=== PATIENT | female | born 1975 | race Caucasian/White ===

== ENCOUNTER → 2021-08-15 15:41 | Outpatient (BNVA) | payer OTHER, SELFPAY | PROVIDERS: PCP Internal Medicine; Referring Provider Internal Medicine; Visit Provider Physician Assistant Surgical ==

== ENCOUNTER → 2021-08-22 08:07 | Outpatient (BNVA) | payer OTHER, SELFPAY | PROVIDERS: PCP Internal Medicine; Visit Provider Surgery ==

== ENCOUNTER 2021-08-24 08:44 | Outpatient (REF) | payer OTHER, SELFPAY ==
--- NOTE | ~2021-08-24 | XR_ITS ---
EXAMINATION: XR CHEST CLINICAL INFORMATION: Bariatric service evaluation, E66.01. COMPARISON: Chest radiographs 10/08/2017 TECHNIQUE: 2 views of the chest were obtained. FINDINGS: The lungs are clear. There is no airspace consolidation or effusion. The heart is normal in size. The hilar and mediastinal contours are normal. Bony structures show levocurvature lower thoracic spine. XR/XR chest 2V IMPRESSION: 1. Lungs clear. 2. Levocurvature lower thoracic spine.
--- NOTE | 2021-08-24 09:21 | ECG_ITS ---
Test Reason : 0besity Blood Pressure : / mmHG Vent. Rate : 082 BPM Atrial Rate : 082 BPM P-R Int : 150 ms QRS Dur : 084 ms QT Int : 360 ms P-R-T Axes : 054 025 061 degrees QTc Int : 420 ms Normal sinus rhythm Normal ECG When compared with ECG of 08-OCT-2017 11:17, No significant change was found Referred By: Low Moore Electronically Signed By:SAGAR CARBAJAL
[2021-08-24 09:22] LABS: MANUAL DIFF FLAG NO
[2021-08-24 10:03] LABS: Basophils Percent Auto 0.4 % (0-2); Eosinophils Absolute Auto 0.1 X10*3/uL (0.0-0.4); Eosinophils Percent Auto 1.9 % (0-4); Hematocrit 42.8 % (37.0-47.0); Hemoglobin 14.1 g/dl (12.0-16.0); Imm Gran Abs Auto 0.01 X10*3/uL (0.00-0.03); Imm Gran Pct Auto 0.2 % (0.0-0.4); Lymphocytes Absolute Auto 1.2 X10*3/uL (1.2-4.9); Lymphocytes Percent Auto 26.4 % (20-40); Mean Corpuscular HGB Conc 32.9 g/dl (31.0-35.0); Mean Corpuscular Hemoglobin 30.2 pg (27.0-33.0); Mean Corpuscular Volume 91.6 fL (80.0-98.0); Mean Platelet Volume 10.2 fL (9.4-12.3); Monocytes Absolute Auto 0.3 X10*3/uL (0.1-1.2); Monocytes Percent Auto 7.2 % (2-11); Neutrophils Percent Auto 63.9 % (45-73); Platelet Count 288 X10*3/uL (160-400); Red Blood Count 4.67 X10*6/uL (4.20-5.50); Red Cell Distribution Width 13.2 % (11.0-16.0); White Blood Count 4.7 X10*3/uL (4.8-10.8)
[2021-08-24 10:27] LABS: Alanine Aminotransferase 14 U/L (0-31); Albumin Level 4.3 g/dL (3.5-5.0); Alkaline Phosphatase 88 U/L (39-117); Anion Gap 13 (12-20); Aspartate Amino Transferase 19 U/L (5-31); Bilirubin Total 0.8 mg/dL (0.0-1.0); Blood Urea Nitrogen 15 mg/dL (9-16); C Reactive Protein 1.77 mg/dL (< or = 0.50); Calcium 10.1 mg/dL (8.4-10.2); Carbon Dioxide 28 mmol/L (22-29); Chloride 103 mmol/L (96-108); Cholesterol 161 mg/dL; Estimated Glomerular Filt Rate > 60; Glucose Random 89 mg/dL (60-115); HDL Cholesterol 71 mg/dL; Iron 60 mcg/dL (30-160); LDL Cholesterol Calculated 81 mg/dl; Percent Iron Saturation 16 % (15-50); Potassium 4.5 mmol/L (3.3-5.1); Sodium 139 mmol/L (135-145); Total Iron Binding Capacity 379 mcg/dL (228-428); Total Protein 8.1 g/dL (6.5-8.0); Triglycerides 45 mg/dL; Unsaturated Iron Binding 319 ug/dL
[2021-08-24 10:42] LABS: Estimated Average Glucose 97 mg/dL
[2021-08-24 10:49] LABS: Ferritin 44 ng/mL (10-250); TSH reflex Free T4 1.56 uIU/mL (0.32-4.0); Vitamin D 25-OH Total 11.9 ng/mL (>30)
[2021-08-24 11:16] LABS: Folate 14.4 ng/mL (> or = 4.0); Vitamin B12 312 pg/mL (200-900)
[2021-08-28 12:36] LABS: Calcium (PTHI) 9.8 mg/dL (8.6-10.2); PTHI 42 pg/mL (14-64)
[2021-08-28 23:26] LABS: Zinc 60 mcg/dL (60-130)
[2021-08-30 12:05] LABS: Vitamin B1 6 nmol/L (8-30)
[2021-08-31 17:45] LABS: Vitamin A 33 mcg/dL (38-98)
== END 2021-08-24 08:45 | disposition home or self-care (01) ==
LOC: HO.XRAY 08:44
PROVIDERS: PCP Internal Medicine; Visit Provider Surgery
DX: E66.01 Morbid (severe) obesity due to excess calories (principal)
CPT/HCPCS: 36415; 71046; 80053; 80061; 82306; 82607; 82728; 82746; 83036; 83540; 83970; 84425; 84443; 84590; 84630; 85025; 86140; 93005

== ENCOUNTER 2021-08-29 13:23 | Outpatient (REF) | payer OTHER, SELFPAY ==
[2021-08-30 12:01] LABS: H Pylori Breath Test Negative (Negative)
== END 2021-08-29 13:24 | disposition home or self-care (01) ==
LOC: HO.LNP 13:23
PROVIDERS: Surgery; PCP Internal Medicine; Referring Provider Internal Medicine; Visit Provider Physician Assistant Surgical
DX: E66.01 Morbid (severe) obesity due to excess calories (principal)
CPT/HCPCS: 83013

== ENCOUNTER → 2021-08-31 08:32 | Outpatient (BNVA) | payer OTHER, SELFPAY | PROVIDERS: PCP Internal Medicine; Referring Provider Internal Medicine; Visit Provider Dietitian, Registered | DX: E66.01 Morbid (severe) obesity due to excess calories (principal); Z68.41 Body mass index [BMI] 40.0-44.9, adult | CPT/HCPCS: 97802 ==

== ENCOUNTER 2021-09-14 08:15 | Outpatient (REF) | payer OTHER, SELFPAY ==
[2021-09-14 09:26] LABS: COVID-19 Test Negative (Negative)
== END 2021-09-14 08:16 | disposition home or self-care (01) ==
LOC: HO.LAB 08:15
PROVIDERS: Visit Provider Internal Medicine
DX: Z20.822 Contact with and (suspected) exposure to COVID-19 (principal)
CPT/HCPCS: 87635; C9803

== ENCOUNTER → 2021-09-14 08:15 | Outpatient (BNVA) | payer OTHER, SELFPAY | PROVIDERS: PCP Internal Medicine; Visit Provider Surgery ==

== ENCOUNTER → 2021-10-13 08:15 | Outpatient (BNVA) | payer OTHER, SELFPAY | PROVIDERS: PCP Internal Medicine; Visit Provider Surgery ==

== ENCOUNTER 2021-10-16 10:01 | Outpatient (REF) | payer OTHER, SELFPAY ==
--- NOTE | ~2021-10-16 | US_ITS ---
EXAMINATION: US COMPLETE ABDOMEN WITH LIVER ELASTOGRAPHY CLINICAL INFORMATION: Obesity COMPARISON: None. TECHNIQUE: Real-time imaging of the abdominal viscera. Noninvasive ultrasound liver fibrosis assessment is performed using Juice ElastPQ point quantification shear wave elastography (2D-SWE) with a C5-2 MHz transducer. Multiple elastography samples are obtained. FINDINGS: PANCREAS: The visualized pancreatic head and body are normal in appearance. The remainder of the pancreas is obscured from visualization by the overlying bowel gas. ABDOMINAL AORTA: The proximal, middle, and distal aortic segments are normal in caliber. INFERIOR VENA CAVA: Visualized portions are normal. LIVER: The liver demonstrates normal size, contour and echogenicity. There is a 1.2 x 0.9 x 1.6 cm cyst in the right lobe. No other focal lesion or intrahepatic biliary duct dilatation. The right lobe measures 12 cm in length. The left lobe measures 10 cm in length. Portal flow is normal/hepatopedal Shear wave liver elastography median stiffness is 1.5 m/s (reference: normal median stiffness is 1.3 m/s or less). IQR/median stiffness to assess sampling precision is 0.02 (reference: good quality data set is IQR/median stiffness of 0.15 or less). GALLBLADDER: Normal. The gallbladder is physiologically distended without evidence of stones, sludge, polyps, wall thickening or pericholecystic fluid. COMMON BILE DUCT: Normal in caliber measuring 0.5 cm in diameter. RIGHT KIDNEY: Normal. No hydronephrosis. No renal calculi or focal parenchymal lesions. The kidney measures 11 cm in maximum dimension. LEFT KIDNEY: The lower pole is not well visualized.. No hydronephrosis. No renal calculi or focal parenchymal lesions. The kidney measures 10 cm in maximum dimension. SPLEEN: Normal. The spleen measures 9 cm in maximum dimension. FREE FLUID: None. US/US abdomen comp w elastography IMPRESSION: 1. Impression: Small liver cyst. Limited visualization of the lower pole of the left kidney and tail of the pancreas. 2. Liver elastography: Adequate liver sampling. In the absence of other known clinical signs, rules out compensated advanced chronic liver disease. REFERENCE: Society of Radiologists in Ultrasound Liver Stiffness Thresholds (2020): LIVER STIFFNESS THRESHOLDS: *Liver Stiffness equal or less than 1.3 m/s: High probability of being normal. *Liver Stiffness less than 1.7 m/s: In the absence of other known clinical signs, rules out compensated advanced chronic liver disease. *Liver Stiffness 1.7-2.1 m/s: Suggestive of compensated advanced chronic liver disease but need further test for confirmation. *Liver Stiffness over 2.1 m/s: Rules in compensated advanced chronic liver disease. *Liver Stiffness over 2.4 m/s: Suggestive of clinically significant portal hypertension. QUALITY OF DATA SET: *IQR/Median value equal or less than 0.15 implies a quality data set. *IQR/Median value over 0.15 implies a poor quality data set. SIGNIFICANT CHANGE FROM PRIOR EXAM: Significant change if liver stiffness measurement is 10% or greater from prior exam. OTHER CONSIDERATIONS: The stage of liver fibrosis may be overestimated in the setting of acute hepatitis, liver inflammation, elevated liver function tests, hepatic vascular congestion, obstructive cholestasis, non-fasting state, and infiltrative diseases such as amyloidosis and lymphoma. In some patients with NAFLD, the liver stiffness thresholds for compensated advanced chronic liver disease may be lower. In causes other than viral hepatitis and NAFLD, liver stiffness thresholds are not well established.
--- NOTE | ~2021-10-16 | FL_ITS ---
EXAMINATION: XR FLUOROSCOPY UPPER GI WITH AIR CLINICAL INFORMATION: Morbid to severe obesity due to excess calories. COMPARISON: None TECHNIQUE: Routine upper GI air-contrast study was performed in upright and lying position. FINDINGS: Following oral administration of thick barium and effervescent granules, there is normal propagation of bolus from the oral cavity through the pharynx, esophagus into stomach without any evidence of obstruction, narrowing or stricture. On placing patient prone and supine lying, the course, caliber and peristalsis of the stomach, duodenal bulb and the sweep are normal. There is mild gastroesophageal reflux without hiatal hernia. The mucosal pattern of the stomach, duodenal bulb and the sweep is normal. The course, caliber and peristalsis of the stomach and the duodenum are normal. FLUOROSCOPY TIME: 2.3 minutes DOSE AREA PRODUCT: 23.387 uGy-m2 (microgray-meter squared) FL/FL upper GI w air IMPRESSION: Mild gastroesophageal reflux. Otherwise unremarkable upper GI air-contrast study.
== END 2021-10-16 10:02 | disposition home or self-care (01) ==
LOC: HO.US 10:01
PROVIDERS: PCP Internal Medicine; Visit Provider Surgery
DX: E66.01 Morbid (severe) obesity due to excess calories (principal)
CPT/HCPCS: 74246; 76705; 76981

== ENCOUNTER → 2021-11-20 08:12 | Outpatient (BNVA) | payer OTHER, SELFPAY | PROVIDERS: PCP Internal Medicine; Visit Provider Surgery | DX: Z13.89 Encounter for screening for other disorder (principal) ==

== ENCOUNTER → 2021-11-24 13:01 | Outpatient (BNVA) | payer OTHER, SELFPAY | PROVIDERS: PCP Internal Medicine; Visit Provider Surgery | DX: Z13.89 Encounter for screening for other disorder (principal) ==

== ENCOUNTER 2021-11-30 11:02 | Inpatient (IN) | payer OTHER, SELFPAY ==
[2021-11-24 08:58] VITALS: BMI 39.2
[2021-11-24 12:57] LABS: MANUAL DIFF FLAG NO
[2021-11-24 13:18] LABS: INTERNATIONAL NORM RATIO 1.1 (0.9-1.1); Prothrombin Time 12.9 SEC (9.9-13.0)
[2021-11-24 13:19] LABS: Basophils Percent Auto 0.4 % (0-2); Eosinophils Absolute Auto 0.1 X10*3/uL (0.0-0.4); Eosinophils Percent Auto 2.1 % (0-4); Hematocrit 41.9 % (37.0-47.0); Hemoglobin 13.7 g/dl (12.0-16.0); Imm Gran Abs Auto 0.01 X10*3/uL (0.00-0.03); Imm Gran Pct Auto 0.2 % (0.0-0.4); Lymphocytes Absolute Auto 1.5 X10*3/uL (1.2-4.9); Lymphocytes Percent Auto 31.8 % (20-40); Mean Corpuscular HGB Conc 32.7 g/dl (31.0-35.0); Mean Corpuscular Hemoglobin 30.1 pg (27.0-33.0); Mean Corpuscular Volume 92.1 fL (80.0-98.0); Monocytes Absolute Auto 0.3 X10*3/uL (0.1-1.2); Neutrophils Absolute Auto 2.7 x10*3/uL (2.0-8.3); Neutrophils Percent Auto 58.5 % (45-73); Platelet Count 258 X10*3/uL (160-400); Red Blood Count 4.55 X10*6/uL (4.20-5.50); Red Cell Distribution Width 13.9 % (11.0-16.0); White Blood Count 4.7 X10*3/uL (4.8-10.8)
[2021-11-24 13:35] LABS: Alanine Aminotransferase 14 U/L (0-31); Alkaline Phosphatase 70 U/L (39-117); Anion Gap 13 (12-20); Aspartate Amino Transferase 18 U/L (5-31); Bilirubin Total 0.9 mg/dL (0.0-1.0); Blood Urea Nitrogen 8 mg/dL (9-16); Calcium 9.3 mg/dL (8.4-10.2); Carbon Dioxide 27 mmol/L (22-29); Chloride 102 mmol/L (96-108); Cholesterol 146 mg/dL; Creatinine Clr Calc Pharmacy 96.1; Estimated Glomerular Filt Rate > 60; Glucose Random 79 mg/dL (60-115); HDL Cholesterol 60 mg/dL; LDL Cholesterol Calculated 78 mg/dl; Potassium 4.2 mmol/L (3.3-5.1); Sodium 138 mmol/L (135-145); Total Protein 7.5 g/dL (6.5-8.0); Triglycerides 44 mg/dL
[2021-11-24 13:55] LABS: Insulin 4 uU/mL (2-29); TSH reflex Free T4 1.52 uIU/mL (0.32-4.0)
[2021-11-24 14:14] LABS: Estimated Average Glucose 100 mg/dL; Hemoglobin A1c % 5.1 %
--- NOTE | 2021-11-24 20:36 | P.HPSUR_ITS ---
Pre-Procedural Eval Section A Date of Service: 11/24/21 The patient is an INPATIENT: No The History & Physical has been completed within 30 days and I have reviewed it.: Yes Section B Chief Complaint: obesity Relevant Family History (Specify if Yes): No Relevant Social History: None Present Medications: None Medical History: No relevant PMH History of Previous Operations: No relevant previous surgery Allergies: Allergies Allergy/AdvReac Type Severity Reaction Status Date / Time oxycodone [From PERCOCET] Allergy Unknown Hives Verified 11/24/21 08:56 sulfamethoxazole Allergy Unknown Hives Verified 11/24/21 08:56 [From BACTRIM] trimethoprim [From BACTRIM] Allergy Unknown Hives Verified 11/24/21 08:56 marijuana Allergy Throat Verified 11/24/21 08:56 swelling Review of Systems Sugical H&P ROS: Negative: Constitution, Cardiovascular, Respiratory, Neurological, Psychiatric, Hem-Onc, Allergic/Immunologic, Gastrointestinal, Genitourinary, Musculoskeletal, Integumentary, Endocrine and Eyes /Ears/Nose/Throat Exam Surgical H&P Exam: Normal: HEENT, Normal: Heart, Normal: Lungs, Normal: Extremities, Normal: Abdomen, Normal: Skin and Normal: Neurological Plan Diagnosis/Plan: Unchanged I have reviewed the history and physical and performed a pertinent physical examination on my patient. No changes have occurred unless specified.
--- NOTE | 2021-11-29 11:01 | HO.ANESPROP2 ---
Documented by User: Maddie Mcfarland NP 11/29/21 11:03 HPI - Anesthesia Eval Consult details Narrative: 45yo F for Gastrectomy Sleeve, EGD,possible diaphragmatic hernia,possible ventral hernia,possible open PMFSH Active Problems Active Problems: All Active Problems (Updated 11/24/21 @ 08:55 by Catie George RN) Constipation (Acute) Vitamin B1 deficiency (Acute) Vitamin B12 deficiency (Acute) Major depressive disorder, recurrent, mild (Acute) Asthma (Acute) Back pain (Acute) Morbid obesity (Acute) Past Medical History Medical History Arthritis Asthma Back pain Fibromyalgia Morbid obesity Family History Family History Mother Arthritis associated with cowpox Hypertension Father No problems noted. Brother No problems noted. Brother No problems noted. Brother No problems noted. Brother No problems noted. Sister No problems noted. Sister No problems noted. Daughter Hypertension Daughter No problems noted. Son No problems noted. Surgical History Surgical History History of back surgery History of endometrial ablation Hx of section Hx of surgical procedure Social History Social History Are you a primary primary care provider to a significant other at home: No Do you presently have visiting nurse or other home services: No Alcohol intake: current Alcohol intake frequency: holidays/special occasions only Patient Tobacco Use Status: Current someday Tobacco user Tobacco use type: Smokeless Tobacco Use of substances other than those prescribed or required for medical reasons: No Have you been hit, kicked, punched, or otherwise hurt by someone within the past year? If so, by whom?: No Are you DNR?: No Advance Directives: No Advance Directives Information Provided: Yes (Mailed with Pre-op Instructions) Advance Directives on File: No Recently lost weight without trying: No How much weight loss: 24-33 pounds Eating poorly because of decreased appetite: No Nutrition screen score: 3 Nutrition Risks: No Nutritional Risk Patient : No : No Poor oral hygiene: No Meds Allergies Allergy/AdvReac Type Severity Reaction Status Date / Time oxycodone [From PERCOCET] Allergy Unknown Hives Verified 11/24/21 08:56 sulfamethoxazole Allergy Unknown Hives Verified 11/24/21 08:56 [From BACTRIM] trimethoprim [From BACTRIM] Allergy Unknown Hives Verified 11/24/21 08:56 marijuana Allergy Throat Verified 11/24/21 08:56 swelling Home Medications Medication Instructions Recorded Confirmed Last Taken Type albuterol sulfate 90 mcg/actuation 1 puff INHALATION Q4-6H PRN 08/22/21 11/30/21 Unknown History aerosol inhaler loratadine 10 mg capsule (Claritin 10 mg PO DAILY 08/22/21 11/23/21 Unknown History Liqui-Gel) Exam Exam Date and Time: November 29, 2021 1101 Height,Weight and Vital Signs: Height 4 ft 11 in Weight 87.997 kg Pertinent Lab Results Pertinent Lab Results: Laboratory Tests 11/24/21 11/24/21 11/24/21 12:50 12:56 12:56 WBC 4.7 L RBC 4.55 Hgb 13.7 Hct 41.9 MCV 92.1 MCH 30.1 MCHC 32.7 RDW 13.9 Plt Count 258 MPV 11.0 Immature Gran % (Auto) 0.2 Neut % (Auto) 58.5 Lymph % (Auto) 31.8 [place] % (Auto) 7.0 Eos % (Auto) 2.1 Baso % (Auto) 0.4 Lymph # (Auto) 1.5 [place] # (Auto) 0.3 Eos # (Auto) 0.1 Baso # (Auto) 0.0 Abs Immat Gran (auto) 0.01 Absolute Neuts (auto) 2.7 Absolute Nucleated RBC 0.000 Nucleated RBC % (auto) 0.0 PT 12.9 INR 1.1 APTT 36.0 Sodium Potassium Chloride Carbon Dioxide Anion Gap BUN Creatinine Estim Creat Clear Calc Estimated GFR Random Glucose Estimat Average Glucose Hemoglobin A1c % Insulin Level Calcium Total Bilirubin AST ALT Alkaline Phosphatase C-Reactive Protein Total Protein Albumin Triglycerides Cholesterol LDL Cholesterol, Calc HDL Cholesterol TSH Blood Type O Positive Antibody Screen NEGATIVE 11/24/21 11/24/21 12:56 12:56 WBC RBC Hgb Hct MCV MCH MCHC RDW Plt Count MPV Immature Gran % (Auto) Neut % (Auto) Lymph % (Auto) Jess[place] % (Auto) Eos % (Auto) Baso % (Auto) Lymph # (Auto) Jess[place] # (Auto) Eos # (Auto) Baso # (Auto) Abs Immat Gran (auto) Absolute Neuts (auto) Absolute Nucleated RBC Nucleated RBC % (auto) PT INR APTT Sodium 138 Potassium 4.2 Chloride 102 Carbon Dioxide 27 Anion Gap 13 BUN 8 L Creatinine 0.72 Estim Creat Clear Calc 96.1 Estimated GFR > 60 Random Glucose 79 Estimat Average Glucose 100 Hemoglobin A1c % 5.1 Insulin Level 4 Calcium 9.3 D Total Bilirubin 0.9 AST 18 ALT 14 Alkaline Phosphatase 70 D C-Reactive Protein 1.50 H Total Protein 7.5 Albumin 4.0 Triglycerides 44 Cholesterol 146 LDL Cholesterol, Calc 78 HDL Cholesterol 60 TSH 1.52 Blood Type Antibody Screen Narrative Narrative: EKG 08/2021 Vent. Rate : 082 BPM ? ? Atrial Rate : 082 BPM ?? P-R Int : 150 ms? QRS Dur : 084 ms ? ? QT Int : 360 ms ? ? ? P-R-T Axes : 054 025 061 degrees ?? QTc Int : 420 ms ? Normal sinus rhythm Normal ECG When compared with ECG of 08-OCT-2017 11:17, No significant change was found Assessment and Plan Assessment Anesthesia Assessment: Chart Reviewed Documented by User: Candelario Person MD 11/30/21 12:49 [facility] Past Medical History Medical History Arthritis Asthma Back pain Fibromyalgia Morbid obesity Family History Family History Mother Arthritis associated with cowpox Hypertension Father No problems noted. Brother No problems noted. Brother No problems noted. Brother No problems noted. Brother No problems noted. Sister No problems noted. Sister No problems noted. Daughter Hypertension Daughter No problems noted. Son No problems noted. Family history of problems with anesthesia: No Surgical History Surgical History History of back surgery History of endometrial ablation Hx of section Hx of surgical procedure History of Problems with Anesthesia: No Social History Social History Are you a primary primary care provider to a significant other at home: No Do you presently have visiting nurse or other home services: No Alcohol intake: current Alcohol intake frequency: holidays/special occasions only Patient Tobacco Use Status: Current someday Tobacco user Tobacco use type: Smokeless Tobacco Use of substances other than those prescribed or required for medical reasons: No Have you been hit, kicked, punched, or otherwise hurt by someone within the past year? If so, by whom?: No Are you DNR?: No Advance Directives: No Advance Directives Information Provided: Yes (Mailed with Pre-op Instructions) Advance Directives on File: No Recently lost weight without trying: No How much weight loss: 24-33 pounds Eating poorly because of decreased appetite: No Nutrition screen score: 3 Nutrition Risks: No Nutritional Risk Patient : No : No Poor oral hygiene: No Meds Allergies Allergy/AdvReac Type Severity Reaction Status Date / Time oxycodone [From PERCOCET] Allergy Unknown Hives Verified 11/24/21 08:56 sulfamethoxazole Allergy Unknown Hives Verified 11/24/21 08:56 [From BACTRIM] trimethoprim [From BACTRIM] Allergy Unknown Hives Verified 11/24/21 08:56 marijuana Allergy Throat Verified 11/24/21 08:56 swelling Home Medications Medication Instructions Recorded Confirmed Last Taken Type albuterol sulfate 90 mcg/actuation 1 puff INHALATION Q4-6H PRN 08/22/21 11/30/21 Unknown History aerosol inhaler loratadine 10 mg capsule (Claritin 10 mg PO DAILY 08/22/21 11/23/21 Unknown History Liqui-Gel) Exam Airway Mallampati Class: I TM Dist: >3cm Neck ROM: Full Loose/Missing/Broken Teeth: No Assessment and Plan Assessment Anesthesia Assessment: Anesthesia Plan Discussed Final Anesthetic Review Family History of Problems with Anesthesia: No History of Problems with Anesthesia: No NPO: Yes ASA Class: III Final Preanesthetic Review: No Changes in Pt Med Stat, Meds/Allgs Chart Reviewed, Consent Obtained/Reviewed and Anes Risks/Benef Reviewed Patient Risk: Intermediate Procedure Risk: Intermediate Anesthetic Plan Anesthetic Plan: GA Disposition: Standard PACU
[2021-11-29 14:27] LABS: COVID-19 Test Negative (Negative); IDNOW Serial# 16C4AD1C
[2021-11-30] VITALS (10 sets, daily range): BP systolic 116–156; BP diastolic 69–105; PULSE 72–100; RESP 16–20; TEMP 36.5–37.4; O2SAT 98–100
[2021-11-30 11:20] LABS: UPreg QC Valid YES; Urine Pregnancy NEGATIVE (NEGATIVE)
[2021-11-30] MEDS: Lactated Ringers 1,000 ML 999 ML IV (11:57)
--- NOTE | 2021-11-30 13:16 | PM.PNGS ---
Subjective Subjective Date of Service: 11/30/21 Interval history: Patient has mild incisional pain, but was able to ambulate and use the incentive spirometer. She is tolerating phase 1 bariatric diet Physical Exam Vital Signs: Vital Signs: Last Vital Signs Temp 98.8 F 11/30/21 11:24 Pulse 99 11/30/21 11:24 Resp 18 11/30/21 11:24 BP 116/69 11/30/21 11:24 Pulse Ox 98 11/30/21 11:24 BMI result Body Mass Index 39.2 GI: Inspection: Yes normal to inspection, Yes incision (clean, dry and intact) and Yes obesity Extrem: Right lower extremity: normal to inspection (no calf tenderness) Left lower extremity: normal to inspection (no calf tenderness) Objective Data Active Medications Albuterol Sulfate (Albuterol Sulfate (0.083%) 2.5 Mg/3 Ml Vial.Neb) 2.5 mg INHALE ONCE PRN PRN Reason: Shortness of Breath/Wheezing Hydromorphone HCl (Hydromorphone Hcl 0.5 Mg/0.5 Ml Syringe) 0.25 mg IVPUSH Q5M PRN; Protocol PRN Reason: Pain, Severe (Pain Scale 7-10) Lactated Ringer's (Lr) 1,000 mls @ 100 mls/hr IVCONT .Q10H RASHAUN Promethazine HCl 12.5 mg/ (Sodium Chloride) 50.5 mls @ 202 mls/hr IV ONCE PRN PRN Reason: Nausea and Vomiting Ondansetron HCl (Ondansetron Hcl 4 Mg/2 Ml Vial) 4 mg IVPUSH ONCE PRN PRN Reason: Nausea and Vomiting Labs CBC & Chem 7: 11/24/21 12:56 11/24/21 12:56 Labs: Laboratory Results - last 24 hr 11/29/21 11/30/21 13:56 11:10 Urine Test NEGATIVE COVID-19 (DOT) Negative COVID-19 Clin Com See Note Progress Note: A&P Assessment and plan (1) Obesity: Status: Acute Assessment and Plan: s/p laparoscopic sleeve gastrectomy, lysis of adhesions repair of diaphragmatic hernia, and gastropexy Doing well Check am labs. If OK, will discharge home? (2) BMI 39.0-39.9,adult: Status: Acute (3) Asthma: Status: Acute (4) Back pain: Status: Acute (5) GERD (gastroesophageal reflux disease): Status: Acute (6) Liver fibrosis: Status: Acute (7) S/P laparoscopic sleeve gastrectomy: Status: Acute Fall Risk Details Current Medications: Current Medications Albuterol Sulfate (Albuterol Sulfate (0.083%) 2.5 Mg/3 Ml Vial.Neb) 2.5 mg INHALE ONCE PRN PRN Reason: Shortness of Breath/Wheezing Hydromorphone HCl (Hydromorphone Hcl 0.5 Mg/0.5 Ml Syringe) 0.25 mg IVPUSH Q5M PRN; Protocol PRN Reason: Pain, Severe (Pain Scale 7-10) Lactated Ringer's (Lr) 1,000 mls @ 100 mls/hr IVCONT .Q10H RASHAUN Promethazine HCl 12.5 mg/ (Sodium Chloride) 50.5 mls @ 202 mls/hr IV ONCE PRN PRN Reason: Nausea and Vomiting Ondansetron HCl (Ondansetron Hcl 4 Mg/2 Ml Vial) 4 mg IVPUSH ONCE PRN PRN Reason: Nausea and Vomiting Time Spent With Patient Time: Total time spent is greater than 50% in coordination of care (as documented) at patient's floor/unit and/or counseling patient: Quality Stroke Does the patient have a stroke diagnosis?: No VTE Prior VTE?: No VTE Risk Level:: Surgical - moderate VTE Device Contraindication: N/A - Device Ordered VTE Drug Contraindication: Treatment Not Indicated
--- NOTE | 2021-11-30 13:18 | P.BOP_ITS ---
Brief Operative Note Date of Service: 11/30/21 Pre-op diagnosis: Severe obesity with comorbidities (see below) Post-op diagnosis: same Procedure: INITIAL PATIENT BMI ON PRESENTATION AT OUR OFFICE: 42.6 kg/m2 LAST BMI BEFORE SURGERY: 39.4 kg/m2 COMORBIDITIES: asthma, DJD, GERD, liver fibrosis ?The patient presented to the Weight Management Program with significant obesity that was negatively impacting the patient's comorbidities as listed above.? The program is a phased program with a special focus on preoperative medical weight management to promote substantial weight loss and prepare the patients for the second phase of the program: bariatric surgery. The patient participated in an intensive weekly lifestyle ?intervention and exercise program during which the patient ?has lost between the initial office visit and the last preoperative visit 21.8 lbs, or 10% of initial actual body weight. It was deemed appropriate for the patient to now have bariatric surgery. In light of the current Covid-19 pandemic and the well documented strong association of obesity and increased risk of worse outcomes if infected with Covid-19 (REFERENCES: https://pubmed.ncbi.nlm.nih.gov/34070895/ ,? https://pubmed.n i.nlm.nih.gov/32526726/ ), any delay in undergoing bariatric surgery may lead to the patient's worsening health condition and increased?risk of more severe Covid-19 disease if infected. In addition a recent?study from [facility] published in [employer] on 08/28/2021 ([email or web address]) found that, among patients with obesity, substantial weight loss achieved with surgery was associated with improved outcomes of COVID-19 infection. The findings suggest that obesity can be a modifiable risk factor for the severity of COVID-19 infection. In addition, the patient met the BMI-criteria for bariatric surgery based on the BMI on initial presentation. The patient should not be penalized for achieving such weight loss because ?it is not sustainable long-term without surgical intervention and it was achieved in preparation for bariatric surgery ?under my direction and based on my published research (fi [email or web address]).[email or web address] and? https://www.soard.org/article/[email or web address](82)18079-X/pdf ) ?that a 10% preoperative weight loss improves long-term weight loss after surgery and reduces perioperative complications.? Insurance carriers such as [facility] have endorsed my recommendations ?and have included in their policies criteria to include a 10% preoperative weight loss requirement. PROCEDURE: Esophago-gastroscopy, laparoscopic sleeve gastrectomy and laparoscopic gastropexy INDICATIONS: This is a 45 year-old female who was electively scheduled for laparoscopic, possibly open sleeve gastrectomy. The risks and complications of the procedure were discussed with the patient in advance, particularly the possibility of ; pulmonary embolism; staple line leak; bleeding; GERD; cardiac, pulmonary, or renal complications; as well as long-term problems such as insufficient weight loss, vitamin deficiency, strictures, or ulcers. The patient understood all the risks, and was in agreement to proceed with surgery. DESCRIPTION OF PROCEDURE: After informed consent was obtained from the patient, the patient was given preoperative antibiotics, and was transferred to the operating room. After successful induction of general anesthesia, pneumatic compression devices were placed on both lower extremities. An upper endoscopy was performed next. The oropharynx and esophagus appeared to be within normal limits. There was no diaphragmatic hernia present, consistent with the findings of the preoperative upper GI. The stomach was entered. Then after all fluid and air were suctioned and the stomach was fully decompressed, the scope was withdrawn and secured in the mid esophagus. The patient was then prepped and draped in the usual sterile manner, and abdominal access was established at the right upper quadrant with the Fabiano technique. A 12 mm blunt port was inserted, and the abdomen was insufflated with CO2 to a pressure of 15 mmHg. Under direct visualization, additional ports were placed, specifically two 5 mm Versi-step ports to the left upper quadrant, and a 5 mm Versi-Step port to the right upper quadrant. 1% lidocaine plain was used to infiltrate all port sites as well as all fascia defects. Following that, the patient was placed in a steep reverse Trendelenburg position. An additional 5 mm port was placed to the right flank for the Mediflex retractor that was used to retract the left lobe of the liver. The gastro-esophageal fat pad was opened with the ultrasonic device (Thunderbeat, Olympus) and the anterior esophagus and hiatus were exposed. The angle of His was opened with the ultrasonic device the fundus of the stomach from any diaphragmatic and splenic attachments. I then opened the gastrocolic ligament between the transverse colon and the greater curvature of the stomach with the ultrasonic device to enter the lesser sac and facilitate the ligation of the short gastric vessels. I started at a m id-point along the greater curvature and using the Thunderbeat, all short gastric vessels were divided all the way to the angle of His until the left arely was completely dissected at its entirety. I then divided the gastro-colic ligament distally to a distance of about 3-4 cm proximal to the pylorus. The stomach was then divided transversely with one Endo ARACELI-45 purple and four ARACELI-60 articulating orange loads using the AEON stapler and loads. Every effort was made that the gastric sleeve had a tubular shape and an even caliber throughout. Once the sleeve resection was completed, the staple line of the gastric sleeve was reinforced with Hemoclips. The resected stomach was retrieved without difficulty from the Fabiano port. A gastropexy was then performed in order to prevent postoperative GERD and partial gastric volvulus. Several interrupted 2.0 Surgidac sutures were placed between the sleeve's staple line and the previously divided greater omentum and gastro-colic ligament using the Endo-Stitch device. ?An upper endoscopy was performed. There was no narrowing at the GE junction. The scope was easily advanced all the way to the pylorus which was clearly visualized. There was no narrowing anywhere and the sleeve's caliber was even throughout. The sleeve's staple line was inspected and there was no evidence of ischemia, bleeding or dehiscence. At that point the gastroscope was withdrawn from the patient?s mouth while we were decompressing the bowel and the stomach from any remaining air. I looked into the lesser sac to see how the sleeve was situating and it was situating well. There was no bleeding from the staple line, spleen, or short gastric vessels. The Mediflex retractor was removed, and the undersurface of the liver was inspected and there was no bleeding. The patient was placed in supine position. I closed the fascial defect of the 12 mm port site with a figure of eight #1 Polysorb suture. Then 100 cc 0.25 % Marcaine plain with 10 mg of Dexamethasone were used to infiltrate the fascial closure as well as all skin incisions. At this point, the abdomen was deflated, all ports were removed under direct vision, and no bleeding was noted from any of the port sites. The skin incisions were irrigated with saline and were closed with 4-0 absorbable monofilament sutures. Steri-Strips and OpSites were used to cover all incisions. The patient was extubated and was transferred in stable condition to the recovery room for further care. I was present and performed all leos parts of the procedure. Mr Blandon was the office assistant receptionist. There were no residents to assist with this case. Darci Moore MD, PhD, FACS Surgeon: Low Moore MD Anesthesia: GETA, local and other (TAP block) Was an Irs Agent used for this Procedure?: No Irs Agent: Harsha Blandon Estimated blood loss (mL): 10 IV fluids (mL): 3,000 Urine output (mL): 0 (No Davidson to gravity) Pathology: other (Stomach) Condition: stable Disposition: PACU
[2021-11-30] MEDS: ceFAZolin Sodium/Dextrose,Iso 2 GM/50 ML PIGGYBACK IV ×2 (13:34→18:04)
--- NOTE | 2021-11-30 15:51 | P.DS_ITS ---
DS: Providers Provider Date of Service: 12/01/21 Date of admission: 11/30/21 11:02 Primary care physician: Nuno Webb III, MD DS: Diagnosis Discharge Diagnosis (1) Obesity: Status: Acute (2) BMI 39.0-39.9,adult: Status: Acute (3) Asthma: Status: Acute (4) Back pain: Status: Acute (5) GERD (gastroesophageal reflux disease): Status: Acute (6) Liver fibrosis: Status: Acute (7) S/P laparoscopic sleeve gastrectomy: Status: Acute DS: Summary Hospital Course Hospital Course: ADMITTING DIAGNOSIS: obesity, asthma, back pain, GERD ? DISCHARGE DIAGNOSIS: same, s/p laparoscopic sleeve gastrectomy ? PAST SURGICAL HISTORY: lumbar back surgery, cesarian section ? PROCEDURE: upper endoscopy, laparoscopic sleeve gastrectomy ? DISCHARGE SUMMARY: ? History of Present Illness: ? The patient is a?45 year-old woman with a BMI of?42.6 kg/m2 and associated co- morbidities as described above. The patient had extensive work-up,lost?22.4 lbs preoperatively and was electively scheduled for laparoscopic, possible open sleeve gastrectomy and gastropexy. Risks and complications of the surgery were discussed with the patient in advance, particularly the possibility of , pulmonary embolism, anastomotic leak, bleeding, bowel injury, GERD, cardiac, renal or pulmonary complications. The patient understood all the risks and was in agreement with the surgical plan. ? Hospital Course: ? The patient underwent an uneventful laparoscopic sleeve gastrectomy with gastropexy on the day of admission. Postoperatively, the patient was transferred to the surgical floor. The patient received IV Acetaminophen and IV dilaudid for pain control. Patient was started on bariatric phase 1 diet POD #0. On postoperative day one, the patient was feeling well without nausea, vomiting, fevers, or tachycardia. The patient had some mild incisional pain and the abdomen was soft. ? On the morning of postoperative day one, the patient was continued on 1 ounce of water or ice every half hour. During the day, the patient did fairly well, having some incisional pain, but able to ambulate adequately and to tolerate liquids well. ? Since the patient is doing well, we decided that the patient was ready to be discharged. The patient was given instructions to follow-up with me next week and to call my office for any fever over 101, persistent abdominal pain, nausea, vomiting, GERD, symptoms of DVT such as calf tenderness, or leg swelling, or pulmonary embolism such as chest pain or shortness of breath. The patient was also instructed to drink 40-60 ounces of liquids per day using the 1-ounce cups. The patient had been given prescriptions for Tylenol for pain, Zofran prn for nausea, and pantoprazole and carafate previously. The patient was encouraged to ambulate and use the incentive spirometer. The patient was allowed to shower, but no baths, and encouraged to stay active at home. All of these instructions were given to the patient personally. All questions were answered and the patient understood all instructions, the instructions were also given to the patient in print. Time Spent with Patient Time attestation: Total time spent providing and/or coordinating discharge services: Discharge coordination time: Less than 30 minutes Quality: Stroke Does the patient have a stroke diagnosis?: No Physical Exam Vital Signs: Vital Signs: Last Vital Signs Temp 98.8 F 11/30/21 11:24 Pulse 99 11/30/21 11:24 Resp 18 11/30/21 11:24 BP 116/69 11/30/21 11:24 Pulse Ox 98 11/30/21 11:24 BMI result Body Mass Index 39.2 DS: Data Data Completed and Pending Pending studies at discharge: Pending at discharge 11/30/21 14:59 Surgical [PTH] Routine Labs on day of discharge: Laboratory Results - last 24 hr 11/30/21 11:10 Urine Test NEGATIVE Discharge Plan Discharge Patient Disposition: Home, Self-Care Discharge Diagnosis: s/laparoscopic sleeve gastrectomy Referrals: Nuno Webb III, MD [Primary Care Provider] - 1 Week Discharge Medications: Continued docusate sodium [Colace] 100 mg capsule 100 mg PO DAILY Qty: 30 2RF albuterol sulfate 90 mcg/actuation HFA aerosol inhaler 1 puff inhalation Q4-6H PRN (Reason: Wheezing) 0RF loratadine [Claritin Liqui-Gel] 10 mg capsule 10 mg PO DAILY 0RF pantoprazole 40 mg tablet,delayed release (DR/EC) 40 mg PO DAILY Qty: 30 2RF sucralfate 100 mg/mL suspension 10 ml PO BID Qty: 400 2RF ondansetron HCl 4 mg tablet 4 mg PO Q12H Qty: 20 0RF Discontinued thiamine HCl (vitamin B1) 100 mg tablet 100 mg PO DAILY Qty: 30 2RF cholecalciferol (vitamin D3) 125 mcg (5,000 unit) capsule 125 mcg PO DAILY Qty: 30 2RF vitamin A palmitate 10,000 unit capsule 10,000 unit PO .COMPLEX Qty: 30 2RF Rx Instructions: 10,000 units PO one per day; mecobalamin (vitamin B12) 1,000 mcg tablet,disintegrating 1,000 mcg sublingual DAILY Qty: 30 2RF Rx Instructions: place tablet under tongue and allow to dissolve for at least30 secs before swallowing polyethylene glycol 3350 [Miralax] 17 gram powder in packet 17 g PO DAILY Qty: 14 0RF Rx Instructions: Mix each packet with 8oz of water and do 7 packets on 11/28/21 and another 7 packets on 11/29/21 Discharge Orders: Discharge Order (Routine); Ordered 12/01/21 Ordered By: Harsha Blandon Diet: other Activity on Discharge: No heavy lifting Stand Alone Forms: Patient Portal Discharge page Care Plan Goals: weight loss Health Concerns: obesity Plan of Treatment: No tub baths, sex or returning to work until discussed at first post op appointment. No exercise, alcohol, tobacco or illegal drug use. Continue to use incentive spirometer hourly while awake. Walk in home for 5- 10 minutes every 2 hours during the first week. Follow all instructions in the bariatric handbook and call with any questions.Discharge Instructions 1. Please call your doctor or come back to the emergency room should any new symptoms arise. 2. You will receive a courtesy call from [facility] 24-48 hours after discharge. 3. Activity: abstain from alcohol, practice limited stair climbing, no bending, no driving, no exercise, no illicit substances, no lifting, no sex, no tub bath, no work. 4. Diet: continue as discussed with Dr. Moore. 5. Dressing Change/Wound Care: Your incision is covered by clear bandages and guaze underneath. If the area is tender, you may apply an ice pack for short intervals (no more than 20 minutes on, followed by at least 20 minutes off). Do not apply heat. Do not use creams, lotions, or topical antibiotics unless instructed to do so by your surgeon. These can cause infection or allergic reaction. 6. Call your doctor if: - Your temperature exceeds 101.5 F - You experience excessive pain or swelling - You have an unexpected reaction to medication - You have excessive bleeding - You experience continued vomiting/nausea - Your incision begins to separate - Your incision shows signs of infection such as increased redness, swelling, excessive pain, heat, or drainage (light blood or clear fluid is normal) 7. General instructions: No lifting greater than 5 lbs for the next 4 weeks[address] driving within 24 hours of taking narcotic pain medications. If you do not move your bowels in the next 2 days, please take milk of magnesia over the counter. Please follow the post op diet and do not advance your diet until you are seen in the office in about 2 weeks. Please walk around your home every hour or two to prevent blood clots from forming in your legs. You do not need to wake from sleeping to walk. Please sleep in a bed or couch to prevent kinking at the hips and knees. Please take your incentive spirometer (your lung dust control engineer) home with you and use it for the next few days to prevent pneumonias. You may shower, no hot tubs, baths or swimming pools. Please call the office with any questions or concerns such as increasing abdominal pain, fever, chills, shortness of breath, chest pain, leg pain or swelling, or redness or drainage from your incisions. Please stay on stage 3 diet which includes sugar free clear liquids such as ice pops and jello and broth and crystal light. Avoid all carbonation. Please drink 3 protein shakes with at least 25-30 grams of protein daily or 3 of the Celebrate 4:1 shakes which can be purchased in our office. The Celebrate shakes have all of the bariatric vitamins you need if you consume these shakes. If you are drinking other protein shakes, you will need to purchase the Celebrate multivitamins and calcium that we provide in the office (they will provide all the vitamins you need). Please make sure you are consuming at least 40-60 ounces of water in addition to your 3 protein shakes daily. Do not hesitate to contact the office with any questions at . The patient's medical history has been reviewed and they are considered low risk for post op DVT and therefore DVT prophylaxis is not considered necessary. Travel after surgery was reviewed. The patient has not disclosed any travel plans during the first 30 days after surgery and they have been advised that within the first 30 days after surgery any bus, plane, train or car travel over 2 hours in duration is contraindicated due to the possibility of developing blood clots from immobility. Any travel, needs to include periods of ambulation of 10 minutes in duration every 2 hours.? The patient was instructed to discuss any plans for travel during this period with their bariatric surgeon. Assessment: stable, s/p laparoscopic sleeve gastrectomy
[2021-11-30] MEDS: Famotidine/PF 20 MG/2 ML VIAL IVPUSH ×2 (16:10→20:32)
[2021-11-30 16:13] LABS: Hematocrit 39.8 % (37.0-47.0); Hemoglobin 12.9 g/dl (12.0-16.0)
[2021-11-30 16:26] LABS: Anion Gap 20 (12-20); Blood Urea Nitrogen 6 mg/dL (9-16); Carbon Dioxide 19 mmol/L (22-29); Chloride 105 mmol/L (96-108); Creatinine Clr Calc Pharmacy 91.1; Estimated Glomerular Filt Rate > 60; Glucose Random 71 mg/dL (60-115); Potassium 4.6 mmol/L (3.3-5.1); Sodium 139 mmol/L (135-145)
[2021-11-30] MEDS: Lactated Ringers 1,000 ML 100 ML IVCONT ×2 (16:32→20:35)
[2021-11-30] MEDS: ondansetron HCL 4 MG/2 ML VIAL IVPUSH (18:03)
[2021-11-30] MEDS: 0.9 % Sodium Chloride Flush 3 ML SYRINGE IVFLUSH ×2 (18:05→20:32)
[2021-12-01] VITALS: BP 126/68; PULSE 75; RESP 18; TEMP 36.3; O2SAT 97
[2021-12-01] MEDS: ondansetron HCL 4 MG/2 ML VIAL IVPUSH ×2 (02:03→08:03)
[2021-12-01 04:00] VITALS: BP 111/58; PULSE 78; RESP 18; TEMP 36.3; O2SAT 97
[2021-12-01] MEDS: Lactated Ringers 1,000 ML 100 ML IVCONT (05:56)
[2021-12-01 06:04] LABS: MANUAL DIFF FLAG NO
[2021-12-01 06:12] LABS: Hematocrit 35.6 % (37.0-47.0); Hemoglobin 12.3 g/dl (12.0-16.0); Imm Gran Abs Auto 0.02 X10*3/uL (0.00-0.03); Imm Gran Pct Auto 0.5 % (0.0-0.4); Lymphocytes Absolute Auto 0.7 X10*3/uL (1.2-4.9); Lymphocytes Percent Auto 14.7 % (20-40); Mean Corpuscular HGB Conc 34.6 g/dl (31.0-35.0); Mean Corpuscular Hemoglobin 31.8 pg (27.0-33.0); Mean Platelet Volume 11.1 fL (9.4-12.3); Monocytes Absolute Auto 0.2 X10*3/uL (0.1-1.2); Monocytes Percent Auto 3.6 % (2-11); Neutrophils Absolute Auto 3.6 x10*3/uL (2.0-8.3); Neutrophils Percent Auto 81.2 % (45-73); Platelet Count 188 X10*3/uL (160-400); Red Blood Count 3.87 X10*6/uL (4.20-5.50); Red Cell Distribution Width 14.1 % (11.0-16.0); White Blood Count 4.4 X10*3/uL (4.8-10.8)
[2021-12-01 06:21] LABS: Anion Gap 17 (12-20); Blood Urea Nitrogen 5 mg/dL (9-16); Calcium 8.6 mg/dL (8.4-10.2); Carbon Dioxide 17 mmol/L (22-29); Chloride 105 mmol/L (96-108); Creatinine Clr Calc Pharmacy 97.5; Estimated Glomerular Filt Rate > 60; Glucose Random 112 mg/dL (60-115); Potassium 4.6 mmol/L (3.3-5.1); Sodium 134 mmol/L (135-145)
[2021-12-01 07:39] VITALS: BP 106/60; PULSE 66; RESP 18; TEMP 36; O2SAT 98
[2021-12-01] MEDS: Famotidine/PF 20 MG/2 ML VIAL IVPUSH (08:03)
[2021-12-01] MEDS: 0.9 % Sodium Chloride Flush 3 ML SYRINGE IVFLUSH (08:03)
--- NOTE | 2021-12-01 09:35 | MHC.CM.PN ---
PATIENT IS FULLY INDEPENDENT SHE IS DISCHARGED HOME WITH NO NEED FOR SERVICES SHE HAS BEEN VACCINATED X 2 WITH PFIZER COVID-19 SERIES. NO HCP ON FILE AND PATIENT DOES HAVE THIS INFORMATION AT HOME TO REVIEW IF SHE CHOOSES TO ASSIGN ONE. DAUGHTER IS HERE TO TRANSPORT PATIENT HOME. RN AWARE OF PLAN.
--- NOTE | 2021-12-01 10:12 | HO.POSTANES ---
Post Anesthesia Evaluation Post Anesthesia Evaluation Vital Signs: Vital Signs Temp Pulse Resp BP Pulse Ox 12/01/21 07:39 96.8 F 66 18 106/60 98 12/01/21 04:00 97.4 F 78 18 111/58 L 97 12/01/21 00:00 97.3 F 75 18 126/68 97 Anesthesia: General Endotracheal-GETA Mental Status: Awake Pain Control: Satisfactory Nausea/Vomiting: None Hydration: Adequate Anesthesia-Related Issues: No Anes. Related Issues
== END 2021-12-01 10:45 | disposition home or self-care (01) | DRG 621 ==
LOC: HO.SSSA 15:50 → HO.S3 16:01
PROVIDERS: Nurse Practitioner; Physician Assistant Surgical; Admitting Provider Surgery; PCP Internal Medicine; Visit Provider Surgery
PROC: 0DB64Z3 Excision of Stomach, Percutaneous Endoscopic Approach, Vertical (ICD-10-PCS; CPT 43845; principal; 2021-11-30 12:50)
DX: E66.01 Morbid (severe) obesity due to excess calories (principal); J45.909 Unspecified asthma, uncomplicated; M19.90 Unspecified osteoarthritis, unspecified site; M79.7 Fibromyalgia; K21.9 Gastro-esophageal reflux disease without esophagitis; M54.9 Dorsalgia, unspecified; K74.00 Hepatic fibrosis, unspecified; Z68.39 Body mass index [BMI] 39.0-39.9, adult; Z20.822 Contact with and (suspected) exposure to COVID-19; Z88.2 Allergy status to sulfonamides; Z88.5 Allergy status to narcotic agent; Z79.899 Other long term (current) drug therapy
CPT/HCPCS: 36415; 80048; 80053; 80061; 81025; 83036; 83525; 84443; 85014; 85018; 85025; 85610; 85730; 86140; 86850; 86900; 86901; 87635; 88307; 88342; A4649; J0131; J0690; J1100; J1170; J2250; J2370; J2405; J2550; J3010

== ENCOUNTER → 2021-12-05 14:33 | Outpatient (BNVA) | payer OTHER, SELFPAY | PROVIDERS: PCP Internal Medicine; Referring Provider Internal Medicine; Visit Provider Surgery | DX: Z13.89 Encounter for screening for other disorder (principal) ==

== ENCOUNTER → 2021-12-25 08:12 | Outpatient (BNVA) | payer OTHER, SELFPAY | PROVIDERS: PCP Internal Medicine; Visit Provider Physician Assistant Surgical | DX: Z13.89 Encounter for screening for other disorder (principal) ==

== ENCOUNTER 2022-06-12 17:01 | Outpatient (REF) | payer OTHER, SELFPAY ==
[2022-06-12 17:18] LABS: MANUAL DIFF FLAG NO
[2022-06-12 17:24] LABS: Basophils Percent Auto 0.5 % (0-2); Eosinophils Absolute Auto 0.1 X10*3/uL (0.0-0.4); Eosinophils Percent Auto 1.9 % (0-4); Hematocrit 38.7 % (37.0-47.0); Hemoglobin 12.9 g/dl (12.0-16.0); Imm Gran Abs Auto 0.01 X10*3/uL (0.00-0.03); Imm Gran Pct Auto 0.2 % (0.0-0.4); Lymphocytes Absolute Auto 1.7 X10*3/uL (1.2-4.9); Lymphocytes Percent Auto 39.6 % (20-40); Mean Corpuscular HGB Conc 33.3 g/dl (31.0-35.0); Mean Corpuscular Hemoglobin 30.4 pg (27.0-33.0); Mean Corpuscular Volume 91.3 fL (80.0-98.0); Mean Platelet Volume 10.4 fL (9.4-12.3); Monocytes Absolute Auto 0.3 X10*3/uL (0.1-1.2); Monocytes Percent Auto 6.9 % (2-11); Neutrophils Absolute Auto 2.1 x10*3/uL (2.0-8.3); Neutrophils Percent Auto 50.9 % (45-73); Platelet Count 222 X10*3/uL (160-400); Red Blood Count 4.24 X10*6/uL (4.20-5.50); Red Cell Distribution Width 13.3 % (11.0-16.0); White Blood Count 4.2 X10*3/uL (4.8-10.8)
[2022-06-12 17:39] LABS: Alanine Aminotransferase 9 U/L (0-31); Albumin Level 4.2 g/dL (3.5-5.0); Alkaline Phosphatase 80 U/L (39-117); Anion Gap 14 (12-20); Aspartate Amino Transferase 17 U/L (5-31); Bilirubin Total 0.4 mg/dL (0.0-1.0); Blood Urea Nitrogen 19 mg/dL (9-16); C Reactive Protein 0.27 mg/dL (< or = 0.50); Calcium 9.3 mg/dL (8.4-10.2); Carbon Dioxide 28 mmol/L (22-29); Chloride 103 mmol/L (96-108); Cholesterol 161 mg/dL; Estimated Glomerular Filt Rate > 60; Glucose Random 77 mg/dL (60-115); HDL Cholesterol 65 mg/dL; Iron 60 mcg/dL (30-160); LDL Cholesterol Calculated 87 mg/dl; Percent Iron Saturation 19 % (15-50); Sodium 141 mmol/L (135-145); Total Iron Binding Capacity 310 mcg/dL (228-428); Total Protein 7.6 g/dL (6.5-8.0); Triglycerides 48 mg/dL; Unsaturated Iron Binding 250 ug/dL
[2022-06-12 18:00] LABS: Ferritin 61 ng/mL (10-250); Insulin 18 uU/mL (2-29); TSH reflex Free T4 1.52 uIU/mL (0.32-4.0); Vitamin D 25-OH Total 38.8 ng/mL (>30)
[2022-06-12 18:14] LABS: Folate 15.7 ng/mL (> or = 4.0); Vitamin B12 532 pg/mL (200-900)
[2022-06-13 05:14] LABS: Estimated Average Glucose 97 mg/dL
[2022-06-13 11:32] LABS: Calcium (PTHI) 9.5 mg/dL (8.6-10.2); PTHI 39 pg/mL (16-77)
[2022-06-15 13:33] LABS: Vitamin B1 32 nmol/L (8-30)
[2022-06-16 00:33] LABS: Zinc 62 mcg/dL (60-130)
[2022-06-16 16:06] LABS: Vitamin A 35 mcg/dL (38-98)
== END 2022-06-12 17:02 | disposition home or self-care (01) ==
LOC: HO.LAB 17:01
PROVIDERS: Visit Provider Physician Assistant Surgical
DX: Z98.84 Bariatric surgery status (principal)
CPT/HCPCS: 36415; 80053; 80061; 82306; 82607; 82728; 82746; 83036; 83525; 83540; 83970; 84425; 84443; 84590; 84630; 85025; 86140

== ENCOUNTER → 2022-09-06 10:39 | Outpatient (BNVA) | payer OTHER, SELFPAY | PROVIDERS: PCP Internal Medicine; Visit Provider Physician Assistant Surgical | DX: E66.9 Obesity, unspecified (principal) ==

== ENCOUNTER → 2022-11-30 12:47 | Outpatient (BNVA) | payer OTHER, SELFPAY | PROVIDERS: PCP Internal Medicine; Visit Provider Physician Assistant Surgical | DX: Z13.89 Encounter for screening for other disorder (principal) ==

== ENCOUNTER 2024-11-27 10:38 | Outpatient (REF) | payer OTHER, SELFPAY ==
[2024-11-27 15:18] LABS: Influenza A PCR NEGATIVE (Negative); Influenza B PCR NEGATIVE (Negative); Resp Syncy Virus RNA Qual PCR NEGATIVE (Negative); SARS COV2 PCR INHOUSE NEGATIVE (Negative)
== END 2024-11-27 10:39 | disposition home or self-care (01) ==
LOC: HO.LAB 10:38
PROVIDERS: PCP Internal Medicine; Visit Provider Physician Assistant
DX: J01.00 Acute maxillary sinusitis, unspecified (principal); R09.89 Other specified symptoms and signs involving the circulatory and respiratory systems
CPT/HCPCS: 0241U

== ENCOUNTER 2024-11-27 10:38 | Outpatient (AMB) | payer OTHER, SELFPAY ==
--- NOTE | 2024-11-27 11:09 | AM.OFFWIN_ITS ---
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 Patient Tobacco Use Status: Current someday Tobacco user Allergies oxycodone [From PERCOCET] Allergy (Unknown, Verified 11/27/24 11:10) Hives sulfamethoxazole [From BACTRIM] Allergy (Unknown, Verified 11/27/24 11:10) Hives trimethoprim [From BACTRIM] Allergy (Unknown, Verified 11/27/24 11:10) Hives marijuana (cannabis) [marijuana] Allergy (Verified 11/27/24 11:10) Throat swelling Do you need a note to return to daycare/school/sports/work: No HPI HPI Comments History of Present Illness Details History - The patient is a 48-year-old female pr esenting with headache, sinus pressure, and related symptoms. - A persistent massive headache has been ongoing for one week, accompanied by a burning sensation in the sinuses, postnasal drip, sore throat, and pressure behind the eyes. - She denies fever and body aches but ex periences episodes of flushing and chills. - Symptoms have been progressively worse andreina despite taking Tylenol and allergy medication. - Her workplace, [employer], pro vided influenza testing due to a recent flu occurrence. Previous tests earlier in the week for influenza and COVID-19 returned negative results. - She has no history of asthma or Chroni c Obstructive Pulmonary Disease, but experiences nighttime wheezing and breathing difficulty. Physical Exam General: Cooperative, healthy appearing, comfortable and no acute distress Orientation/consciousness: Patient oriented x3 Limitations: No limitations Head: Normal to inspection Ears: Hearing grossly normal bilaterally, external ears normal, EAC with erythema without edema or signs of infection, TM's normal bilaterally Nose: Normal external nose present, Normal nares present and No nasal discharge present Face and sinus: Normal facial exam and Yes sinuses tender Mouth: Normal oral and palatal mucosa present and moist mucous membranes Throat: Yes tonsils normal, Yes uvula midline. Posterior oropharynx erythema with cobblestoning, no exudates Eyes: Appearance normal, both eyes and all related structures Neck: Normal visual inspection Respiratory: Clear to auscultation bilaterally. Normal respiratory effort, able to speak in complete sentences, no respiratory distress, not tachypneic, no tripod positioning and no use of accessory muscles Cardiovascular: Regular rate and rhythm. Normal S1 and S2 Skin: No rashes or lesions noted Neuro: Patient oriented x3 Extremities: Normal to inspection and Yes no clubbing, cyanosis or edema PFSH Medical History Arthritis Asthma Back pain Fibromyalgia GERD (gastroesophageal reflux disease) Liver fibrosis Morbid obesity Surgical History History of back surgery History of endometrial ablation Hx of section Hx of surgical procedure S/P laparoscopic sleeve gastrectomy Family History Mother Arthritis associated with cowpox Hypertension Father No problems noted. Brother No problems noted. Brother No problems noted. Brother No problems noted. Brother No problems noted. Sister No problems noted. Sister No problems noted. Daughter Hypertension Daughter No problems noted. Son No problems noted. Social History Are you a primary rn critical care to a significant other at home: No Do you presently have visiting nurse or other home services: No Alcohol intake: current Alcohol intake frequency: holidays/special occasions only Patient Tobacco Use Status: Current someday Tobacco user Tobacco use type: Smokeless Tobacco service: No Current occupational status: employed Review of Systems Const All systems reviewed & are unremarkable except as noted in HPI and below Physical Exam Vital Signs: Last Vital Signs Temp 98.1 F 11/27/24 11:10 Pulse 88 11/27/24 11:10 BP 122/80 11/27/24 11:10 Pulse Ox 90 L 11/27/24 11:10 Oxygen Delivery Method Room Air 11/27/24 11:10 Assessment & Plan Assessment & Plan (1) Sinusitis: Code(s): J32.9 - Chronic sinusitis, unspecified Qualifiers: Sinusitis location: maxillary Chronicity: acute Recurrence: non- recurrent Qualified Code(s): J01.00 - Acute maxillary sinusitis, unspecified Plan: VSS, pt well appearing and PE remarkable for sinus tenderness. For the management of sinusitis and viral upper respiratory infection, I recommend symptomatic treatment. The patient will begin a course of Prednisone at 40 mg daily for five days to alleviate inflammation and associated discomfort. Concurrently, the patient should continue using Fluticasone nasal spray, ensuring proper administration technique for maximum efficacy. Given that most sinus infections are viral in nature, antibiotic therapy is deferred pending the persistence of symptoms. Symptom relief will also be supported through antihistamine use to address potential allergy exacerbations. The patient is advised to monitor symptoms and reach out or follow up with her primary care provider if the condition worsens. Patient was informed and verbally consented to the use of an ambient scribe for clinic note documentation during this visit Orders: Orders SARS-CoV2/FLU/RSV Today R09.89 - Other specified symptoms and signs involving the circulatory and respiratory systems Medications: New prednisone 40 mg (2 x 20 mg) PO DAILY 10 tabs 0RF Coding Level of Care Code New Pt Level 3 (23711) Diagnoses Acute non-recurrent maxillary sinusitis J01.00 Sinusitis location: maxillary Chronicity: acute Recurrence: non-recurrent
[2024-11-27 11:10] VITALS: BP 122/80; PULSE 88; TEMP 36.7; O2SAT 96
== END 2024-11-27 11:47 | disposition home or self-care (01) ==
PROVIDERS: PCP Internal Medicine; Visit Provider Physician Assistant
DX: J01.00 Acute maxillary sinusitis, unspecified (principal)

== ENCOUNTER 2024-12-07 10:05 | Outpatient (AMB) | payer OTHER, SELFPAY ==
--- NOTE | 2024-12-07 10:03 | A.OFFVIS_ITS ---
VS Expanded 12/07/24 10:06 Height 5 ft Weight 154 lb BMI 30.1 Intake Visit Reasons: TV PO LSG 11/30/21 *SEE COMMENTS* Allergies oxycodone [From PERCOCET] Allergy (Unknown, Verified 11/27/24 11:10) Hives sulfamethoxazole [From BACTRIM] Allergy (Unknown, Verified 11/27/24 11:10) Hives trimethoprim [From BACTRIM] Allergy (Unknown, Verified 11/27/24 11:10) Hives marijuana (cannabis) [marijuana] Allergy (Verified 11/27/24 11:10) Throat swelling Medication List - Last Reconciled 12/07/24 by VASILE Macdonald albuterol sulfate 90 mcg/actuation 1 puff inhalation Q4-6H PRN inulin (Fiber Gummies) grams PO loratadine (Claritin Liqui-Gel) 10 mg PO DAILY multivitamin 1 tab PO DAILY HPI Comments Details: This?is a?48?yo female who is s/p LSG 11/30/2021. Presents for 3 year post op visit. Weight at last visit on 11/30/2022 was 139.6 pounds with a BMI of 27.2, weight today is 154 pounds, representing a 14.4 pound weight loss with a BMI today of 30.1.? No complaints of nausea, emesis, abdominal pain or reflux, or constipation. Pt had panniculectomy by Dr. Mahmood in 2022- breast lift, tummy tuck/lipo. Present meal plan includes: not following a structured meal plan still feels restriction, 4 forks Reports problems with excess skin of arms, legs. Notices an odor in skin folds from sweating when she exercises or wakes up with sweat collecting in skin folds. Has to use topical powder to avoid odor. Has to use tshirt fabric in fold to prevent moisture from collecting. Extra skin causes arms and legs to feel heavy and uncomfortable. Has to wear several layers while exercising to prevent friction. Gets rashes of upper arms, particularly in summer when she sweats more. This is due to chafing and rubbing against the body. These rashes are painful and itchy. Has used a barrier cream and anti-sweat topical treatment to help keep area dry but this has not completely resolved the issue. Has to always wear longer sleeves to help prevent skin from rubbing against skin of torso, however this can be uncomfortable in hot weather. Extra skin of arms feels very heavy and uncomfortable, contributing to pain in neck and shoulders due to weight of skin on arms pulling down. Walking has become more uncomfortable/painful due to arms rubbing against torso with movement. Has to wear several layers while exercising to prevent friction. Notices a lot of chafing and skin irritation between thighs from rubbing together. The excess skin of her legs is also very heavy and causes discomfort, including when walking. [facility] Medical History Arthritis Asthma Back pain Fibromyalgia GERD (gastroesophageal reflux disease) Liver fibrosis Morbid obesity Surgical History History of back surgery History of endometrial ablation Hx of section Hx of surgical procedure S/P laparoscopic sleeve gastrectomy Family History Mother Arthritis associated with cowpox Hypertension Father No problems noted. Brother No problems noted. Brother No problems noted. Brother No problems noted. Brother No problems noted. Sister No problems noted. Sister No problems noted. Daughter Hypertension Daughter No problems noted. Son No problems noted. Social History Are you a primary director of critical care to a significant other at home: No Do you presently have visiting nurse or other home services: No Alcohol intake: current Alcohol intake frequency: holidays/special occasions only Patient Tobacco Use Status: Current someday Tobacco user Tobacco use type: Smokeless Tobacco service: No Current occupational status: employed Telehealth Telehealth Telehealth Platform: Telephone Location of provider rendering services: practice address Location of patient: address on file Patient Identification confirmed using: Name, : Yes Telehealth method: voice only Patient verbally consented to treatment: Yes Patient verbally consented to billing insurance company: Yes Patient informed of any privacy concerns related to visit: Yes Minutes spent on Phone/Video with Pt.: 18 Assessment & Plan Assessment & Plan (1) Excess skin: Code(s): L98.7 - Excessive and redundant skin and subcutaneous tissue Category: Medical (2) S/P laparoscopic sleeve gastrectomy: Comment: 11/30/21 Code(s): Z98.84 - Bariatric surgery status Category: Surgical (3) Obesity: Code(s): E66.9 - Obesity, unspecified Category: Medical Plan Will prescribe PO fluconazole for recurrent rashes of skin folds of upper arms. Pt needs BMi <27 for skin removal surgery, sent [employer] meal plan joselo and pt states she will try aggressive plan. I encouraged her to text me with any questions or concerns between appts. RTC 2 months for in person visit for physical exam. Will also need labs. Medications: New fluconazole 150 mg PO .weekly 2 tabs 0RF
[2024-12-07 10:06] VITALS: BMI 30.1
--- OUTSIDE RECORDS SUMMARY | 2024-12-07 11:45 | XMS_ITS | Clinical Summary ---
Author Organization [facility] Address [address] [place] [address] Care Team Providers Care Head Irrigator Name Role Phone Yonny Horton MD Primary Care Provider Social History Tobacco Use Types Packs/Day Years Used Date Smoking Tobacco: Never Assessed Sex and Gender Information Value Date Recorded Sex Assigned at Not on file Gender Identity Not on file Sexual Orientation Not on file Job Start Date Occupation Industry Not on file Not on file Not on file Plan of Treatment Health Maintenance Due Date Last Done Comments Hepatitis B Vaccines (1 of 3 - 3-dose series) 1976 Hepatitis C Screening 1976 COVID-19 Vaccine (#1) 06/26/1977 Depression Screening 1988 Preventative Health Evaluation 1994 Cervical Cancer Screening (P ap Smear) 1997 Colon Cancer Screening (Colonoscopy) 2021 Influenza Vaccine (#1) 2024 DTap / Tdap / Td (2 - Td or Tdap) 12/13/2025 016 Pneumococcal Vaccine Aged Out No long er eligible based on patient's age to complete this topic RSV Ped < 20 months Aged Out No longe r eligible based on patient's age to complete this topic Care Teams Head Irrigator Relationship Specialty Start Date End Date Yonny Horton MD [address] [place] [address] PCP - General Family Medicine 01/27/20
--- OUTSIDE RECORDS SUMMARY | 2024-12-07 11:45 | XMS_ITS | Clinical Summary ---
Author Organization [facility] Address [address] [place] [address] Care Team Providers Care Internet Site Designer Name Role Phone Nuno Webb MD Primary Care Provider [phone] Social History Tobacco Use Types Packs/Day Years Used Date Smoking Tobacco: Never Assessed Sex and Gender Information Value Date Recorded Sex Assigned at Not on file Gender Identity Not on file Sexual Orientation Not on file Plan of Treatment Health Maintenance Due Date Last Done Comments Hepatitis C Virus Screening 1976 HIV Screening 1989 DTaP/Tdap/Td Vaccines (1 - Tdap) 12/26/1995 Hepatitis B Vaccines (1 of 3 - 19+ 3-dose series) 12/26/1995 Pap Smear (Ages 21-65) 1997 Mammogram 2016 Colonoscopy 2021 Influenza Vaccine 04/02/2024 COVID-19 Vaccine ( - 2023-2 5 season) 2024 Pneumococcal Vaccine: Pediat momo (0-5 Years) and At-Risk Patients (6 to 49 Years) Aged Out No longer eligible b ased on patient's age to complete this topic Care Teams Internet Site Designer Relationship Specialty Start Date End Date Nuno Webb MD PCP - General 09/07/20
--- OUTSIDE RECORDS SUMMARY | 2024-12-07 11:45 | XMS_ITS | Clinical Summary ---
Author Organization [address] [place] [address] [place] [phone] Phone Care Team Providers Care Retail Receiving Clerk Name Role Phone Nuno Webb MD Primary Care Provider [phone] Allergies Active Allergy Reactions Criticality Noted Date Comments Oxycodone Itching Low 02/03/2020 Oxycodone-Acetaminophen Hives,Itching 9 Sulfamethoxazole Rash Low 02/03/2020 Sulfamethoxazole-Trimethoprim Hives 2009 Trimethoprim Rash Low 02/03/2020 Medications ergocalciferol (VITAMIN D-2) 1,250 mcg (50,000 unit) capsule Take 1 capsule (50,000 Units total) by mouth 1 (one) time per week. 11/08/2023 Active loratadine-pseu doephedrine (CLARITIN-D 12-hour) 5-120 mg per 12 hr tablet Take 1 tablet by mouth 1 (one) time each day if needed. Active Active Problems Problem Noted Date Diagnosed Date H. pylori infection 08/03/2020 Displacement of thoracic int ervertebral disc without myelopathy 08/04/2018 Thoracic osteoarthritis 08/04/2018 Fibromyalgia 06/09/2018 Severe obesity (BMI 35.0-39.9) with comorbidity 01/07/2018 TMJ dysfunction 01/07/2018 Asthma 04/30/2016 Allergic rhinitis 07/07/2010 Depression 10/09/2005 Endometriosis 10/09/2005 Immunizations Name Administration Dates Next Due Influenza Quadravalent, MDCK , 0.5ml, preservative free (Flucelvax) 6mo and older 06/17/2020,07/31/2018 Influenza trivalent, 0.5mL, preservative free (Fluarix; FluLaval; Fluzone) ages 6mo and older (Afluria) 3 years and older 06/26/2024 Pneumococcal polysaccharide 23 valent (Pneumovax 23) 2yo and older 06/17/2020 Td Tetanus diptheria (Tdvax) 7yo and older 09/02 Tdap Tetanus diptheria acell ular pertussis (Boostrix; Adacel) 7yo and older 12/14/2015 Surgical History Surgery Date Site/Laterality Comments COLONOSCOPY 05/11/2010 PROCEDURE: MS COLONOSCOPY STOMA DX INCLUDING COLLJ SPEC SPX; COMMENT: Up to cecum, adequate preparation, normal colon exam SECTION 12/2008 PROCEDURE: HISTORICAL ; COMMENT: X 1 OTHER SURGICAL HISTORY 2015 PROCEDURE: ---- OTHER ----; COMMENT: resection urethral diverticulum OTHER SURGICAL HISTORY PROCEDURE: MS ANES HYSTEROSCOPY&/HYSTEROSALPINGOGRAPHY W/BX; COMMENT: and ablation OTHER SURGICAL HISTORY 06/2021 Bilateral PROCEDURE: MAMMOGRAM, SCREENING, BOTH BREASTS Medical History Medical History Date Comments Unspecified constipation 10/09/2005 DX:Unsp ecified constipation Endometriosis, site unspecified 10/09/2005 DX:Endometriosis, site unspecified Depressive disorder, not els ewhere classified 10/09/2005 DX:Depressive disorder, not elsewhere classified Headache(784.0) 10/09/2005 DX:Headache(784. 0) Allergic rhinitis 07/07/2010 DX:Allergic rh initis Family History Medical History Relation Name Comments Diabetes Brother depression Hypertension Father diabetes, MVA Other: unknown cancer Maternal Grandfather Ovarian cancer Maternal Grandmother breas t cancer Arthritis Mother HTN, depression , gastric bypass Breast cancer Mother's side great MGM Breast cancer Other 1 m 1st cousin 43 Breast cancer Other 2 m gr grma Breast cancer Paternal Grandmother 50 Diabetes Sister 1 lung disease?, depression, obesity, arthritis Depression Sister 2 arthritis, thyr oid disease Prostate cancer Uncle paternal Relation Name Status Comments Brother Alive Father Maternal Grandfather Maternal Grandmother Mother Alive Mother's side great MGM Other 1 m 1st cousin 43 Other 2 m gr grma Paternal Grandfather Paternal Grandmother 50 Sister 1 Alive Sister 2 Alive Uncle paternal Social History Tobacco Use Types Packs/Day Years Used Date Smoking Tobacco: Former Cigarettes Q uit: 05/10/2007 Smokeless Tobacco: Never Tobacco Cessation:Counseling Given: Not Answered Alcohol Use Standard Drinks/Week Comments Yes 0 (1 standard drink = 0.6 oz pur e alcohol) Comments No Sex and Gender Information Value Date Recorded Sex Assigned at Female 09/11/2024 11:42 AM EST Legal Sex Female 4:15 AM EST Gender Identity Female 09/11/2024 11:42 AM EST Sexual Orientation Not on file Obstetrics History Para Term AB IAB SAB Ectopic Multiple Livin g Live Births 3 3 3 3 Date Outcome GA Total Labor Labor//3rd Weight Sex Type Anes PTL Steffi A1 A5 Name Clin Term Term Term Last Filed Vital Signs Vital Sign Reading Time Taken Comments Blood Pressure 102/56 08/19/2024 10:54 AM EST Pulse 96 08/19/2024 10:54 AM EST Temperature 36 ??C (96.8 ??F) 08/19/2024 10:54 AM EST Respiratory Rate - - Oxygen Saturation 97% 08/19/2024 10:54 AM EST Inhaled Oxygen Concentration - - Weight 71.2 kg (157 lb) 06/26/2024 9:35 AM EDT Height 152.4 cm (5') 06/26/2024 9:35 AM EDT Body Mass Index 30.66 06/26/2024 9:35 AM EDT Plan of Treatment Health Maintenance Due Date Last Done Comments Hepatitis B Vaccines (1 of 3 - 19+ 3-dose series) 12/26/1995 Pneumococcal Vaccine: Pediatrics (0 to 5 Years) and At-Risk Patients (6 to 64 Years) (2 of 2 - PCV) 06/17/2021 06/17/2020 Colorectal Cancer Screening: Colonoscopy 08/05/2022 Depression Screening 08/05/2022 HIV Screening 08/05/2022 Hepatitis C Screening 08/05/2022 Social Influencers of Health Screening 08/05/2022 COVID-19 Vaccine ( - season) 2024 02/02/2021, 12/27/2020 Cervical Cancer Screening: Pap Smear 09/05/2024 09/05/2021 DTaP,Tdap,and Td Vaccines (3 - Td or Tdap) 12/13/2025 12/14/2015, 09/02/2000 Breast Cancer Screening 08/31/2026 08/31/20 24, 07/16/2023, 07/11/2022, Additional history exists Cholesterol Screening (Lipid Panel) 10/17/2028 10/17/2023 Influenza Vaccine Completed 06/26/2024, , 07/31/2018 HIB Vaccines Aged Out No longer eligi ble based on patient's age to complete this topic HPV Vaccines Aged Out No longer eligi ble based on patient's age to complete this topic Hepatitis A Vaccines Aged Out No long er eligible based on patient's age to complete this topic IPV Vaccines Aged Out No longer eligi ble based on patient's age to complete this topic MMR Vaccines Aged Out No longer eligi ble based on patient's age to complete this topic Meningococcal ACWY Vaccine Aged Out N o longer eligible based on patient's age to complete this topic Meningococcal B Vacine Aged Out No lo nger eligible based on patient's age to complete this topic RSV Immunization Patients Under 20 months Aged Out No longer eligible based on patient's age to complete this topic Varicella Vaccines Aged Out No longer eligible based on patient's age to complete this topic Procedures Procedure Name Priority Date/Time Associated Diagnosis Comments MG MAMMO DIGITAL SCREENING W JASPER BILAT Routine 08/31/2024 4:42 PM EST Encounter for screening mammogram for breast cancer LIPID PANEL Routine 10/17/2023 HM PAP SMEAR Routine 09/05/2021 from Last 3 Months or Most Recently Relevant to Health Maintenance Results * MG Mammo Digital Screening w Jasper bilat (08/31/2024 4:42 PM EST) Anatomical Region Laterality Modality Breast Bilateral Mammography 09/01/2024 7:19 PM EST Impressions 09/01/2024 7:20 PM EST No mammographic evidence of malignancy. BREAST DENSITY: B - There are scattered areas of fibroglandular density. BI-RADS CATEGORY: 1 - NEGATIVE RECOMMENDATION: Screening bilateral mammogram is recommended in 1 year. MAMMO LOCATION: [facility], [address] [place] [address], [id number], . -------- FINAL REPORT -------- Dictated By: Colette Law Dictated Date: 09/01/2024 19:19 ET Assigned Physician: Coeltte Law Reviewed and Electronically Signed By: Colette Law Signed Date: 09/01/2024 19:20 ET Workstation ID: [id number] Transcribed By: Self Edit Transcribed Date: 09/01/2024 19:19 ET Narrative 09/01/2024 7:20 PM EST EXAM: Screening Mammogram CLINICAL: 48 years old, Female, routine annual exam. ??History of bilateral mastopexy. COMPARISON: 07/16/2023 and as far back as 08/11/2020 ?? TECHNIQUE: Bilateral MLO and CC views were obtained digitally with 3-D mammogram (digital breast tomosynthesis). Computer-aided detection was utilized in evaluation of this exam (CAD). FINDINGS: No new suspicious mass, architectural distortion, or suspicious calcifications. Procedure Note Colette Law MD - 09/01/2024 EXAM: Screening Mammogram CLINICAL: 48 years old, Female, routine annual exam. History of bilateralmastopexy. COMPARISON: 07/16/2023 and as far back as 08/11/2020 TECHNIQUE: Bilateral MLO and CC views were obtained digitally with 3-Dmammogram (digital breast tomosynthesis). Computer-aided detection wasutilized in evaluation of this exam (CAD). FINDINGS: No new suspicious mass, architectural distortion, or suspiciouscalcifications. IMPRESSION: No mammographic evidence of malignancy. BREAST DENSITY: B - There are scattered areas of fibroglandular density. BI-RADS CATEGORY: 1 - NEGATIVE RECOMMENDATION: Screening bilateral mammogram is recommended in 1 year. MAMMO LOCATION: [facility], [address] [place] [address], [id number], . -------- FINAL REPORT -------- Dictated By: Colette Law Dictated Date: 09/01/2024 19:19 ET Assigned Physician: Colette Law Reviewed and Electronically Signed By: Colette Law Signed Date: 09/01/2024 19:20 ET Workstation ID: [id number] Transcribed By: Self Edit Transcribed Date: 09/01/2024 19:19 ET us Nuno Webb MD IMG BI PROCEDURES Final Result * Lipid panel (10/17/2023) LDL/HDL Ratio 2 0 - 4 Triglycerides 46 0 - 150 mg/dL Cholesterol 176 0 - 200 mg/dL HDL 86 >=40 mg/dL LDL Cholesterol 81 0 - 100 mg/dL Blood Venous blood specimen / Unknown Historical Provider LAB BLOOD ORDERABLES Marlen l Result * Hm Pap Smear (09/05/2021) Pap smear no interpretation , abstracted Historical Provider HEALTH MAINTENANCE Final Result from Last 3 Months or Most Recently Relevant to Health Maintenance Insurance [facility] Care Teams Retail Receiving Clerk Relationship Specialty Start Date End Date Nuno Webb MD [address] [place] [phone] PCP - General Internal Medicine 10/14/19
== END 2024-12-07 10:32 | disposition home or self-care (01) ==
LOC: HO.HBS 10:05
PROVIDERS: PCP Internal Medicine; Visit Provider Physician Assistant Surgical
DX: L98.7 Excessive and redundant skin and subcutaneous tissue (principal); Z98.84 Bariatric surgery status; E66.811 Obesity, class 1; Z68.30 Body mass index [BMI] 30.0-30.9, adult
CPT/HCPCS: 98013